=== PATIENT | male | born 1985 | race Caucasian/White ===

== ENCOUNTER 2022-01-02 14:18 | Emergency (ER) | payer OTHER ==
[2022-01-02] MEDS ORDERED: AMOX TR-K CLV1 EAC4 PO (16:02)
== END 2022-01-02 16:28 | disposition home or self-care (01) ==
LOC: FER 14:18
DX: S61.251A Open bite of left index finger without damage to nail, initial encounter (principal); Z23 Encounter for immunization; Z28.310 Unvaccinated for COVID-19; W55.01XA Bitten by cat, initial encounter; Y92.009 Unspecified place in unspecified non-institutional (private) residence as the place of occurrence of the external cause
CPT/HCPCS: 90471; 90715; 99283

== ENCOUNTER 2022-01-07 16:16 | Emergency (ER) | payer OTHER ==
[~2022-01-07 16:16] MED LIST: AMOX TR-K CLV1 EAC4 PO
[2022-01-07] MEDS ORDERED: NORCO 5-325 TA1 EACH PO ×2 (19:45→20:18)
== END 2022-01-07 19:43 | disposition home or self-care (01) ==
LOC: FER 16:16
DX: S61.012A Laceration without foreign body of left thumb without damage to nail, initial encounter (principal); Z28.310 Unvaccinated for COVID-19; W27.0XXA Contact with workbench tool, initial encounter; Y93.89 Activity, other specified; Y92.009 Unspecified place in unspecified non-institutional (private) residence as the place of occurrence of the external cause
CPT/HCPCS: 73140